=== PATIENT | female | born 1950 | race Caucasian/White ===

== ENCOUNTER 2021-01-05 15:00 | Outpatient (CLI) | payer MEDICARE, BC ==
[~2021-01-05] VITALS: Ht 162.6 cm; Wt 86.3 kg
[2021-01-05] VITALS (7 sets, daily range): BP systolic 109–135; BP diastolic 58–82; PULSE 70–92; TEMP 98.2–99.2
[2021-01-05] MEDS ORDERED: HCTZ12.5TAB PO (15:14)
[2021-01-05] MEDS ORDERED: ALEVE 220MG220 MG PO (15:15)
[2021-01-05] MEDS ORDERED: COZAAR 50MG50 MG/TAB PO (15:15)
[2021-01-05] MEDS ORDERED: ASPIRIN E.C. 8181 MG PO (15:15)
--- NOTE | 2021-01-05 17:15 | NUR ---
Pt tolerated infusion without issue. INT DC'd with catheter intact. She is escorted out to 's truck.
== END 2021-01-05 17:20 | disposition home or self-care (01) ==
LOC: EUO 15:00
DX: U07.1 COVID-19 (principal)
CPT/HCPCS: Q0244